=== PATIENT | male | born 1940 | race Caucasian/White ===

== ENCOUNTER 2019-01-29 09:25 | Observation (INO) | payer MEDICARE ==
[~2019-01-29] VITALS: Ht 182.9 cm; Wt 108.9 kg
[2019-01-29 10:07] LABS: BASOPHILS # (AUTO) 0.1 (0.0-0.1); BASOPHILS % 0.9 % (0.0-1.0); EOSINOPHILS # (AUTO) 0.3 (0.0-0.4); EOSINOPHILS % 3.8 % (0.0-6.0); HEMATOCRIT 41.7 % (38.2-49.6); HEMOGLOBIN 13.9 g/dL (14.0-18.0); LYMPHOCYTES # (AUTO) 1.6 (1.0-3.2); LYMPHOCYTES % 19.5 % (18.0-39.1); MEAN CORPUSCULAR HEMOGLOBIN 30.2 pg (28-32); MEAN CORPUSCULAR HGB CONC 33.3 g/dL (31-35); MEAN CORPUSCULAR VOLUME 90.7 fL (81-99); MONOCYTES # (AUTO) 0.7 (0.2-0.8); MONOCYTES % 8.4 % (4.4-11.3); NEUTROPHILS # (AUTO) 5.5 (2.1-6.9); NEUTROPHILS % 66.8 % (38.7-80.0); PLATELET COUNT 183 x10e3/uL (140-360); RED CELL DISTRIBUTION WIDTH 12.7 % (11.7-14.4)
[2019-01-29 10:15] LABS: INR 0.92; PARTIAL THROMBOPLASTIN TIME 34.9 seconds (23.8-35.5); PROTHROMBIN TIME 12.8 seconds (11.9-14.5)
[2019-01-29 10:24] LABS: ALANINE AMINOTRANSFERASE 23 IU/L (0-55); ALBUMIN 3.7 g/dL (3.5-5.0); ALBUMIN/GLOBULIN RATIO 1.2 (0.8-2.0); ALKALINE PHOSPHATASE 51 IU/L (40-150); ANION GAP 11.7 mmol/L (8-16); BLOOD UREA NITROGEN 15 mg/dL (7-26); BUN/CREATININE RATIO 13 (6-25); CARBON DIOXIDE 29 mmol/L (22-29); CHLORIDE 103 mmol/L (98-107); CREATINE KINASE 54 IU/L (30-200); CREATININE, SERUM 1.13 mg/dL (0.72-1.25); EST GLOMERULAR FILTRATION RATE > 60 ML/MIN (60-); GLUCOSE 125 mg/dL (74-118); POTASSIUM 3.7 mmol/L (3.5-5.1); SODIUM 140 mmol/L (136-145)
[2019-01-29 10:38] LABS: BILIRUBIN,URINE NEGATIVE (NEGATIVE); CLARITY,URINE CLEAR (CLEAR); COLOR,URINE YELLOW (YELLOW); KETONES,URINE NEGATIVE (NEGATIVE); LEUKOCYTE ESTERASE ,URINE NEGATIVE (NEGATIVE); NITRITE,URINE NEGATIVE (NEGATIVE); PROTEIN,URINE DIPSTICK NEGATIVE (NEGATIVE); URINE UROBILINOGEN 1 mg/dL (0.2 - 1)
--- NOTE | 2019-01-29 10:38 | Diagnostic Imaging Report ---
History:Confusion, memory loss. Comparison studies:None Technique: Axial images were obtained from the skull base to the vertex. Coronal and sagittal images reconstructed from the axial data. Intravenous contrast: None Dose modulation, iterative reconstruction, and/or weight based adjustment of the mA/kV was utilized to reduce the radiation dose to as low as reasonably achievable. Findings: Scalp/skull: No abnormalities. Extra-axial spaces: No masses. No fluid collections. Brain sulci: Age-appropriate. Ventricles: Age-appropriate. No hydrocephalus. Parenchyma: Describe hypodensities in the supratentorial white matter are small vessel ischemic changes. 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 Sellar/suprasellar region: No abnormalities. Craniocervical junction: Patent foramen magnum. No Chiari one malformation. Incidental findings: Atherosclerotic calcifications in the carotid siphons . Bilateral cataract surgery changes. Impression: No acute abnormalities. Chronic findings: 1. Mild supratentorial white matter small vessel ischemic changes. Signed by: DR Rufus Serrano M.D. on 01/29/2019 10:35 AM
[2019-01-29 10:40] LABS: AMPHETAMINES SCREEN,URINE NEGATIVE (NEGATIVE); BENZODIAZEPINES SCREEN,URINE NEGATIVE (NEGATIVE); PHENCYCLIDINE SCREEN,URINE NEGATIVE (NEGATIVE)
[2019-01-29 10:55] LABS: RBC,URINE 0-5 /HPF (0-5); WBC,URINE (MAN) 0-5 /HPF (0-5)
[2019-01-29 10:56] LABS: BACTERIA,URINE FEW /HPF; EPITHELIAL CELLS,URINE FEW /LPF; HYALINE CASTS 0-1 (0-1); MUCUS,URINE FEW (RARE)
[2019-01-29] MEDS ORDERED: DEXTROSE 50% SYRINGE 50 ML IV PRN (12:15)
--- OUTSIDE RECORDS SUMMARY | 2019-01-29 12:38 | XMS REPORT ---
Author Author [facility] Address Unknown Phone Unavailable Care Team Providers Care Machine Hostler Name Role Phone Soraya RENDON Unavailable Unavailable Problems This patient has no known problems. Allergies, Adverse Reactions, Alerts This patient has no known allergies or adverse reactions. Medications This patient has no known medications. Results Test Description Test Time Test Comments Text Results Atomic Results Result Comments CT BRAIN WO 2019-01-29 10:30:00 [facility] [address] [id number] Patient Name: REINIER CHEN MR #: [id number] : 1940 Age/Sex: 79/M Req #: [id number] Adm Physician: Ordered by: MARCIN RENDON MD Report #: [id number] Location: ER Room/Bed: Procedure: [id number] CT/CT BRAIN WO Exam Date: 01/29/19 Exam Time: 1010 REPORT STATUS: Signed History:Confusion, memory loss. Comparison studies:None Technique: Axial images were obtained from the skull base to the vertex. Coronal and sagittal images reconstructed from the axial data. Intravenous contrast: None Dose modulation, iterative reconstruction, and/or weight based adjustment of the mA/kV was utilized to reduce the radiation dose to as low as reasonably achievable. Findings: Scalp/skull: No abnormalities. Extra-axial spaces: No masses. No fluid collections. Brain sulci: Age-appropriate. Ventricles: Age-appropriate. No hydrocephalus. Parenchyma: Describe hypodensities in the supratentorial white matter are small vessel ischemic changes. 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 Sellar/suprasellar region: No abnormalities. Craniocervical junction: Patent foramen magnum. No Chiari one malformation. Incidental findings: Atherosclerotic calcifications in the carotid siphons . Bilateral cataract surgery changes. Impression: No acute abnormalities. Chronic findings: 1. Mild supratentorial white matter small vessel ischemic changes. Signed by: DR Rufus Serrano M.D. on 01/29/2019 10:35 AM Dictated By: RUFUS JUNE MD [id number] Transcribed By: UMBERTO on 01/29/19 1035 COPY TO: MARCIN RENDON MD
--- NOTE | 2019-01-29 13:04 | NUR ---
Verified with AZUL Hope regarding no telemetry order, stated spoke with Dr. Reyes no need for telemetry. Alejandra, terra nurse notified.
--- NOTE | 2019-01-29 13:46 | NUR ---
H&P cc: confusion HPI: 79yoM, PCP , developed confusion in am, became disoriented after going to the gym. PMH: HTN, HLD PSHx: tonsillectomy, appendectomy,vasectomy Allergies; see emr Fh/Sh; ; no cigs meds; see MAR ROS; no /c/s/N/V/D/WHITLOCK/vision changs/cp/sob/skin rash/back pain/mood changes v/s; revd PE nad anicteric ns1s2 mod bs soft nt nd no e/t skin dry n. affect a&ox3; holloway labs/meds revd A/P: 79yoM BOBBI/AMS Hyperglycemia Obesity BMI 32.5 Physical deconditioning HTN HLD Plan: UA negative; PT consult; hba1c/lipids check NH3 Lovenox/timd Chandrakant Reyes MD, PhD.
[2019-01-29 14:22] LABS: AMPHETAMINES SCREEN,URINE NEGATIVE (NEGATIVE); BENZODIAZEPINES SCREEN,URINE NEGATIVE (NEGATIVE); PHENCYCLIDINE SCREEN,URINE NEGATIVE (NEGATIVE)
[2019-01-29] MEDS: ASPIRIN 81 MG CHEW TAB PO SCH (15:20)
--- NOTE | 2019-01-29 15:23 | Diagnostic Imaging Report ---
History: TIA Comparison studies: CT head 01/27/2019 Technique: Sagittal T2; axial DWI, FLAIR, MPGR, T1, Coronal FLAIR. Intravenous contrast: None Findings: Scalp: Normal in signal . No masses . Bone marrow: Normal in signal intensity. Extra-axial: No masses, no fluid collections. Brain sulci: Appropriate for age. Ventricles: Normal in size . No hydrocephalus . Parenchyma: Chronic lacunar infarct at the right hypothalamus. Subtle T-2/flair hyperintensities of the supratentorial white matter, most commonly seen with mild chronic microvascular ischemic changes No masses, hemorrhage, acute or chronic vascular insults. Suprasellar region: No abnormalities. Craniocervical junction: No abnormalities. Patent foramen magnum. No Chiari one malformation. Vessels: Normal flow-voids in the arteries and sinuses. Bilateral cataract surgery changes. IMPRESSION: 1. No acute abnormalities. No changes compared to the previous exam. Signed by: DR Rufus Serrano M.D. on 01/29/2019 3:20 PM
[2019-01-29 15:52] VITALS: BP 158/82
[2019-01-29] MEDS: INSULIN REGULAR, HUMAN 100 UNIT/1 ML 3ML VIAL SQ SCH ×2 (16:11→21:18)
[2019-01-29 16:27] VITALS: BP 158/82
[2019-01-29] MEDS ORDERED: ENOXAPARIN SOD INJ 40 MG/0.4 ML SYR SC SCH (17:00)
[2019-01-29] MEDS: FAMOTIDINE 20 MG TAB PO SCH (18:20)
[2019-01-29 19:39] VITALS: BP 168/76
[2019-01-29 20:17] VITALS: BP 168/76
[2019-01-29] MEDS ORDERED: NIFEDIPINE 10 MG CAP PO SCH (21:00)
[2019-01-29] MEDS: NIFEDIPINE CR 30 MG TAB PO SCH (21:21)
[2019-01-30 00:02] VITALS: BP 127/69
[2019-01-30 05:40] VITALS: BP 107/58
--- NOTE | 2019-01-30 07:09 | NUR ---
pt alert resp even and indicated, no distress noted, no c/o pain when asked, pt able to make needs known, call light in reach.
[2019-01-30 07:10] VITALS: BP 133/72
[2019-01-30] MEDS: INSULIN REGULAR, HUMAN 100 UNIT/1 ML 3ML VIAL SQ SCH ×2 (07:30→11:30)
[2019-01-30] MEDS: FAMOTIDINE 20 MG TAB PO SCH (08:59)
[2019-01-30] MEDS ORDERED: ASPIRIN 325 MG TAB PO SCH (09:00)
[2019-01-30] MEDS: NIFEDIPINE CR 30 MG TAB PO SCH (09:01)
[2019-01-30] MEDS: ASPIRIN 81 MG CHEW TAB PO SCH (09:01)
[2019-01-30] MEDS ORDERED: ASPIRIN CHEW81 MG PO (09:23)
[2019-01-30] MEDS ORDERED: NIFEDIPINE ER30 M1 PO (09:23)
[2019-01-30] MEDS ORDERED: FAMOTIDINE20 MG PO (09:23)
[2019-01-30 10:21] VITALS: BP 133/66
[2019-01-30 11:16] VITALS: BP 156/82
[2019-01-30] MEDS ORDERED: NIFEDIPINE CR 30 MG TAB PO ONE (14:00)
--- NOTE | 2019-01-30 15:08 | NUR ---
pt discharged home , pt was educated on her medications, pt was asked to follow up with his PCP, pt iv site was removed no swelling no redness to site.
--- NOTE | 2019-01-31 04:42 | NUR ---
D/C summary: Principal Dx: BOBBI/AMS Hyperglycemia Secondary Dx: Obesity BMI 32.5 Physical deconditioning HTN HLD Plan: UA negative; PT consult; hba1c/lipids check NH3 Lovenox/pepcid MRI brain negative; CT brain negative; U/S carotids normal d/c home f/u pcp 1 week stable d/c>35mins Chandrakant Reyes MD, PhD.
== END 2019-01-30 15:09 | disposition home or self-care (01) ==
LOC: ER 09:25 → ERHOLD 12:14 → MED/SURG2 13:49
PROVIDERS: ADMIT Internal Medicine; ATTEND Internal Medicine
DX: R41.82 Altered mental status, unspecified (principal); E11.65 Type 2 diabetes mellitus with hyperglycemia; I12.9 Hypertensive chronic kidney disease with stage 1 through stage 4 chronic kidney disease, or unspecified chronic kidney disease; E11.22 Type 2 diabetes mellitus with diabetic chronic kidney disease; N18.9 Chronic kidney disease, unspecified; E78.5 Hyperlipidemia, unspecified; E66.9 Obesity, unspecified; Z68.32 Body mass index [BMI] 32.0-32.9, adult; R53.81 Other malaise; Z82.49 Family history of ischemic heart disease and other diseases of the circulatory system; Z79.82 Long term (current) use of aspirin
CPT/HCPCS: 36415 ×2; 70450; 70551; 80053; 80307; 81001; 82140; 82550; 82553; 82948 ×2; 84443; 84484; 85025; 85610; 85730; 93005; 93880; 97161; 99284; G0378 ×2; J1650